=== PATIENT | male | born 1990 | race Two or more races ===

== ENCOUNTER 2024-09-15 21:03 | Emergency (ER) | payer SELFPAY ==
[~2024-09-15] VITALS: Ht 180.3 cm; Wt 93.0 kg
[2024-09-15 22:21] VITALS: BP 131/70; TEMP 98.4; O2SAT 98
[2024-09-15] MEDS ORDERED: AZITHROMYCIN 250 MG TABLET ONE (23:08)
[2024-09-15] MEDS ORDERED: CEFTRIAXONE 500 MG VIAL ONE (23:08)
[2024-09-15] MEDS ORDERED: METRONIDAZOLE 500 MG TABLET ONE (23:08)
[2024-09-15] MEDS: AZITHROMYCIN 250 MG TABLET PO ONE (23:10)
[2024-09-15] MEDS: CEFTRIAXONE 500 MG VIAL IM ONE (23:10)
[2024-09-15] MEDS: METRONIDAZOLE 500 MG TABLET PO ONE (23:10)
[2024-09-15 23:18] LABS: APPEARANCE,URINE SLIGHTLY CLOUDY (CLEAR); BLOOD, URINE 1+ Ery/uL (NEGATIVE); LEUKOCYTE ESTERASE ,URINE 2+ (NEGATIVE); NITRITE, URINE NEGATIVE (NEGATIVE); UGLUCOSE NEGATIVE (NEGATIVE)
[2024-09-15] MEDS ORDERED: CIPR-262 PO (23:22)
[2024-09-15 23:25] LABS: ADD URINE CULTURE YES; SQUAMOUS EPITHELIAL CELL,UR None Seen /HPF (None Seen)
[2024-09-18 08:07] LABS: CHLAMYDIA TRACHOMATIS NAA Negative (Negative)
[2024-09-18 09:07] LABS: NEISSERIA GONORRHOEAE NAA Positive (Negative)
== END 2024-09-15 23:30 | disposition home or self-care (01) ==
LOC: ER 21:12
DX: N39.0 Urinary tract infection, site not specified (principal); R36.9 Urethral discharge, unspecified; Z11.3 Encounter for screening for infections with a predominantly sexual mode of transmission; Z60.2 Problems related to living alone
CPT/HCPCS: 99283; 96372; 87086; 81001; 87491; 87591; J0696